=== PATIENT | male | born 1995 | race Caucasian/White ===

== ENCOUNTER 2017-01-12 21:15 | Emergency (ER) | payer OTHER ==
[~2017-01-12] VITALS: Ht 180.3 cm; Wt 86.7 kg
[2017-01-12 21:52] LABS: EOSINOPHIL (%) 1.3 % (0-5); EOSINOPHIL COUNT 0.2 K/uL (0-0.3); IMMATURE GRANULOCYTE (%) 0.3 % (0.0-0.7); INSTRUMENT ABS NEUTROPHIL CT 9.5 K/uL; LYMPHOCYTE COUNT 1.7 K/uL (1.0-2.8); MCH 29.7 PG (29.0-34.0); MCV 87.3 FL (86-99); MEAN PLAT.VOLUME 10.1 uM^3 (9.0-12.4); MONOCYTE (%) 5.8 % (3-12); MONOCYTE COUNT 0.7 K/uL (0-0.8); NEUTROPHIL (%) 78.6 % (45-76); NEUTROPHIL COUNT 9.5 K/uL (1.8-6.4); PLATELET COUNT 275 K/uL (156-360); RBC DIS.WIDTH-CV 13.2 % (11.8-14.6); RBC DIS.WIDTH-SD 41.7 % (39-53); RED BLOOD COUNT 4.81 M/uL (4.00-5.50); WHITE BLOOD COUNT 12.1 K/uL (4.1-10.2)
[2017-01-12 22:04] LABS: AMYLASE 22 IU/L (1-118); CHLORIDE 106 mEq/L (99-109); POTASSIUM 3.9 mEq/L (3.7-5.4); SODIUM 138 mEq/L (136-147)
[2017-01-12 22:06] LABS: GLUCOSE 119 mg/dL (70-99)
[2017-01-12 22:07] LABS: ANION GAP 9 MEQ/L (2-14)
[2017-01-12 22:09] LABS: SERUM ETHYL ALCOHOL < 10 mg/dL
[2017-01-12 22:10] LABS: UREA NITROGEN (BUN) 14 mg/dL (9-23)
[2017-01-12 22:11] LABS: GFR ESTIMATE (CALCULATED) > 59 mL/min/
[2017-01-12 22:12] LABS: LIPASE 20 U/L (1.0-51.0)
[2017-01-12] MEDS ORDERED: PERCOCET 5/31 TABLET PO (23:08)
[2017-01-12 23:38] LABS: ADD MIUA? NO; BILIRUBIN NEGATIVE; BLOOD NEGATIVE; COLOR STRAW ((YELLOW)); GLUCOSE (STRIP) NEGATIVE; KETONES NEGATIVE; LEUKOCYTES NEGATIVE; NITRITE NEGATIVE; PROTEIN (STRIP) NEGATIVE; SPECIFIC GRAVITY 1.044 (1.000-1.030); UCUL ADDED? NO; UROBILINOGEN 0.2 MG/DL (0.2-1.0)
[2017-01-12 23:47] LABS: AMPHETAMINE NEGATIVE (500 ng/mL); BARBITURATES NEGATIVE (200 ng/mL); BENZODIAZEPINES NEGATIVE (150 ng/mL); COCAINE NEGATIVE (150 ng/mL); METHADONE NEGATIVE (200 ng/mL); METHAMPHETAMINE NEGATIVE (500 ng/mL); OPIATES (MORPHINE) PRESUMPTIVE POSITIVE (100 ng/mL); OXYCODONE NEGATIVE (100 ng/mL); PHENCYCLIDINE NEGATIVE (25 ng/mL); PROPOXYPHENE NEGATIVE (300 ng/mL); THC CANNABINOIDS NEGATIVE (50 ng/mL); TRICYCLIC ANTIDEPRESSANTS NEGATIVE (300 ng/mL)
[2017-01-12 23:48] LABS: ADD MEDTOX COMMENT Y; INTERNAL CONTROLS VALID? YES
[2017-01-12 23:50] VITALS: BP 120/71
== END 2017-01-12 23:51 | disposition home or self-care (01) ==
LOC: EME → EDBD 21:15 → EME 21:15
PROVIDERS: Emergency Medicine
DX: S42.022A Displaced fracture of shaft of left clavicle, initial encounter for closed fracture (principal); R07.9 Chest pain, unspecified; V29.88XA Motorcycle rider (driver) (passenger) injured in other specified transport accidents, initial encounter
CPT/HCPCS: 71010; 71260; 73030; 74177; 80048; 81003; 82150; 83690; 84999; 85025; 86900; 86901; 99281; 99285; G0480; J2270; J2405; J3010; J7030